=== PATIENT | female | born 1990 | race Hispanic/Latino ===

== ENCOUNTER 2017-05-21 07:39 | Emergency (ER) | payer OTHER ==
[~2017-05-21] VITALS: Ht 165.1 cm; Wt 68.8 kg
[2017-05-21] MEDS ORDERED: NS 1,000 ML IV SCH (08:06)
[2017-05-21] MEDS ORDERED: ONDANSETRON 4MG/2ML VIAL (J2405) IV ONE (08:15)
[2017-05-21] MEDS ORDERED: MORPHINE 4 MG/ML 1ML SYRINGE IV ONE (08:15)
[2017-05-21 08:22] LABS: BASO % 0.4 % (0.0-1.0); EOS # 0.1 K/mm3 (0.0-0.50); EOS % 1.2 % (0.0-3.0); LARGE UNSTAINED CELL # 0.1 K/mm3 (0.0-0.4); LARGE UNSTAINED CELL % 1.2 % (0.0-4.0); LYMPH # 1.7 K/mm3 (1.5-6.5); LYMPH % 15.3 % (24.0-44.0); MEAN CORPUSCULAR HEMOGLOBIN 30.7 pg (27.0-33.0); MEAN CORPUSCULAR HGB CONC 34.6 g/dl (32.0-36.5); MEAN CORPUSCULAR VOLUME 88.7 fl (80.0-96.0); MONO # 0.6 K/mm3 (0.0-0.8); MONO % 5.5 % (0.0-5.0); NEUTROPHILS # 7.8 K/mm3 (1.8-7.7); NEUTROPHILS % 76.3 % (36.0-66.0); PLATELET COUNT, AUTOMATED 186 k/mm3 (150-450); RED CELL DISTRIBUTION WIDTH 12.4 % (11.5-14.5); WHITE BLOOD COUNT 10.3 K/mm3 (4.0-10.0)
[2017-05-21 08:48] LABS: CONTROL LINE HCG INT CTR LINE PRESENT
[2017-05-21 09:17] LABS: BLOOD UREA NITROGEN 10 MG/DL (7-18); CHLORIDE LEVEL 106 MEQ/L (98-107); CREATININE FOR GFR 0.81 MG/DL (0.55-1.02); GLOMERULAR FILTRATION RATE > 60.0 (>60); GLUCOSE, FASTING 99 MG/DL (70-105); SODIUM LEVEL 138 MEQ/L (136-145)
[2017-05-21 09:18] LABS: ALBUMIN 3.5 GM/DL (3.2-5.2); ALBUMIN/GLOBULIN RATIO 0.92 (1.00-1.93); ALKALINE PHOSPHATASE 83 U/L (45-117); ALT/SGPT 16 U/L (12-78); ANION GAP 8 MEQ/L (8-16); AST/SGOT 12 U/L (15-37); BILIRUBIN,DIRECT 0.1 MG/DL (0.0-0.2); BILIRUBIN,TOTAL 0.6 MG/DL (0.2-1.0); CALCIUM LEVEL 9.3 MG/DL (8.5-10.1); CARBON DIOXIDE LEVEL 24 MEQ/L (21-32); TOTAL PROTEIN 7.3 GM/DL (6.4-8.2)
[2017-05-21] MEDS ORDERED: GASTROGRAFIN SOLUTION 30ML PO ONE (09:30)
--- NOTE | 2017-05-21 09:31 | REP ---
RIGHT UPPER QUADRANT ULTRASOUND: Real-time sonographic evaluation of the right upper quadrant performed. Gallbladder demonstrates no evidence of intraluminal sludge or calculi, wall thickening, or pericholecystic fluid. There is no intrahepatic or extrahepatic biliary diltation, common bile duct measuring 3 mm in diameter. Liver and pancreas demonstrate homogenous echotexture with no gross mass. Right kidney demonstrates no hydronephrosis or nephrolithiasis with normal size at 12.2 cm in length. IMPRESSION: Negative right upper quadrant ultrasound. Signed by Remy Puri MD 05/21/2017 04:24 P
[2017-05-21] MEDS ORDERED: ISOVUE-370 76% 100ML VIAL (Q9967) As Ordered ONE (09:33)
[2017-05-21] MEDS ORDERED: GASTROGRAFIN SOLUTION 30ML (Q9963) PO ONE (10:00)
[2017-05-21] MEDS ORDERED: KETOROLAC 30 MG/ML VIAL (J1885) IV ONE (10:30)
--- NOTE | 2017-05-21 11:54 | REP ---
CT ABDOMEN AND PELVIS WITH CONTRAST: TECHNIQUE: Axial contrast enhanced images from the lung bases to the pubic symphysis using 100 mL Isovue 370 intravenous contrast material with multiplanar reformations. The visualized lung bases are clear. The liver, spleen, adrenals and pancreas are unremarkable. The left kidney appears unremarkable. The right kidney demonstrates a hypodense areas in the upper pole posterolaterally measuring 1.3 cm in diameter. This could represent a nodule or cyst versus focal pyelonephritis. There is no abdominal aortic aneurysm. There is no adenopathy. There is no free air. There is no evidence of appendicitis. There is a cystic structure of the right ovary approximately 3.5 cm in diameter. There is mild free fluid in the pelvis. IMPRESSION: No evidence of appendicitis. Right ovarian cyst 3.5 cm in diameter. Mild free fluid in the pelvis. Focal hypodense area in the upper pole of the right kidney 1.3 cm in diameter. This could represent a focal nodule or cyst versus an area of focal pyelonephritis. Followup dedicated CT of the kidneys is recommended. Signed by Remy Puri MD 05/21/2017 04:25 P
[2017-05-21] MEDS ORDERED: PERC5TAB12 PO (14:31)
[2017-05-21 14:51] VITALS: BP 119/73
--- NOTE | 2017-05-21 15:12 | REP ---
Pelvic sonography: History: Right lower quadrant pain. Question torsion. Findings: Transabdominal and transvaginal scanning are performed. Uterine dimensions are normal at 7.5 x 3.4 x 5.0 cm. Endometrial echo is 0.7 cm thick. There is a small quantity of fluid in the cul-de-sac. The right ovary is enlarged with overall dimensions of 5.9 x 4.0 x 4.9 cm. There is a complex cyst of the right ovary measuring 3.2 x 3.7 x 3.0 cm. Unremarkable Doppler flow is seen in the right ovary with resistive index 0.54. The left ovary has a normal appearance with dimensions of 3.9 x 2.3 x 2.1 cm. Its Doppler flow is normal as well with resistive index 0.54. Impression: There is a small amount of fluid in the cul-de-sac and adjacent to the right ovary. The right ovary contains a complex 3.7 cm cyst which may be a hemorrhagic cyst. Doppler flow appears to be normal in both ovaries but torsion is not excluded by this. Signed by Caesar Ledesma MD 05/21/2017 03:47 P
--- NOTE | 2017-05-22 11:00 | ED PDOC ---
Post-Departure Follow-Up ft muriel faxed formal report of ct abd/p for fu Murtaza Greer MD May 22, 2017 11:00
== END 2017-05-21 14:53 | disposition home or self-care (01) ==
LOC: M ED 07:39
DX: N83.201 Unspecified ovarian cyst, right side (principal); Z79.3 Long term (current) use of hormonal contraceptives
CPT/HCPCS: 74177; 76705; 76830; 76856; 80048; 80076; 81001; 83690; 84703; 85025; 87088; 87186; 93976; 96361; 96374; 96375; 99283; J1885; Q9963; Q9967

== ENCOUNTER 2017-07-31 14:04 | Emergency (ER) | payer OTHER ==
[~2017-07-31] VITALS: Ht 165.1 cm; Wt 71.4 kg
[~2017-07-31 14:04] MED LIST: PERC5TAB12 PO
[2017-07-31] MEDS ORDERED: prenatal vitamins PO (14:24)
[2017-07-31] MEDS ORDERED: BACT800T5 PO (17:58)
[2017-07-31] MEDS ORDERED: PYRI1TAB5 PO (17:59)
[2017-07-31] MEDS ORDERED: MACR100C43 PO (18:04)
[2017-07-31 18:22] VITALS: BP 117/77
== END 2017-07-31 18:23 | disposition home or self-care (01) ==
LOC: M ED 14:04
DX: N39.0 Urinary tract infection, site not specified (principal)

== ENCOUNTER 2017-08-02 14:42 | Emergency (ER) | payer OTHER ==
[~2017-08-02] VITALS: Ht 165.1 cm; Wt 69.5 kg
[~2017-08-02 14:42] MED LIST changes: +BACT800T5 PO; +MACR100C43 PO; +PYRI1TAB5 PO; +prenatal vitamins PO
--- NOTE | 2017-08-02 17:48 | REP ---
FIRST TRIMESTER ULTRASOUND: Real-time sonographic evaluation of the pelvis performed utilizing transabdominal and endovaginal technique. The uterus measures 8.1 x 3.7 x 5.2 cm. The endometrial thickness is approximately 12 mm. No intrauterine gestational sac is seen. The right ovary measures 3.1 x 1.9 x 1.9 cm and left ovary 2.8 x 3.3 x 5.5 cm. Blood flow is seen in each ovary with duplex Doppler evaluation, with no torsion, RI right ovary 0.61 and left ovary 0.51. Complex cystic structure of the left ovary measures 2.8 x 2.7 x 2.7 cm. There is a moderate amount of adjacent free fluid. Differential diagnosis would include early intrauterine gestation, missed AB or ectopic . Suggest correlation with serial quantitative beta hCG values. Signed by Remy Puri MD 08/02/2017 07:25 P
[2017-08-02 17:49] VITALS: BP 117/58
== END 2017-08-02 17:50 | disposition home or self-care (01) ==
LOC: M ED 14:42
DX: O23.41 Unspecified infection of urinary tract in pregnancy, first trimester (principal); Z3A.01 Less than 8 weeks gestation of pregnancy

== ENCOUNTER 2017-08-04 10:11 | Emergency (ER) | payer OTHER ==
[~2017-08-04] VITALS: Ht 165.1 cm; Wt 68.2 kg
[2017-08-04 11:30] VITALS: BP 114/71
== END 2017-08-04 11:30 | disposition home or self-care (01) ==
LOC: M ED 10:11
DX: O23.11 Infections of bladder in pregnancy, first trimester (principal); O34.81 Maternal care for other abnormalities of pelvic organs, first trimester; N83.202 Unspecified ovarian cyst, left side; Z3A.01 Less than 8 weeks gestation of pregnancy